=== PATIENT | male | born 1990 | race African-American/Black ===

== ENCOUNTER 2017-12-13 19:46 | Emergency (ER) | payer SELFPAY ==
[2017-12-13] MEDS ORDERED: Adacel (T-DAP) 0.5 ML VIAL ONE (21:45)
[2017-12-13] MEDS ORDERED: Lidocaine 1% (PF) 30 ML VIAL ONE (22:14)
--- NOTE | 2017-12-13 22:30 | RAD ---
THREE VIEWS LEFT THUMB 12/13/17 HISTORY: Cut thumb while cutting chicken. AP, lateral and oblique views left thumb is obtained. There is a soft tissue laceration along the elias shahriar aspect of the first metacarpophalangeal joint. No evidence of radiopaque foreign body seen. No ev idence of osseous lesions or abnormality seen. IMPRESSION: Soft tissue injury without evidence of bony abnormalities of the left thumb. POS: [facility]
== END 2017-12-13 23:05 | disposition home or self-care (01) ==
LOC: ERS 19:46
DX: S61.012A Laceration without foreign body of left thumb without damage to nail, initial encounter (principal); F41.9 Anxiety disorder, unspecified; Z87.891 Personal history of nicotine dependence; W26.0XXA Contact with knife, initial encounter
CPT/HCPCS: 12001; 90471; 90715; J2001